=== PATIENT | male | born 1970 | race Caucasian/White ===

== ENCOUNTER 2016-08-20 11:04 | Emergency (ER) | payer OTHER ==
[~2016-08-20 11:04] MED LIST: ACULAR10 ML; BACTRIM DS TABL1 TAB PO; KEFLEX PO; LORTAB 5/500 TA1 TA1 PO; VICODIN 5/500 T1 TAB PO
[2016-08-23 01:24] LABS: CHLAMYDIA TRACH Not Detected (Not Detected); N GONOR Detected (Not Detected)
== END 2016-08-20 14:10 | disposition home or self-care (01) ==
LOC: CFTX 11:04 → CED 11:04 → CFTX 13:36 → CED 13:36 → CFTX 14:10
PROVIDERS: Physician Assistant Medical
DX: R36.9 Urethral discharge, unspecified (principal); F17.210 Nicotine dependence, cigarettes, uncomplicated; Z98.890 Other specified postprocedural states
CPT/HCPCS: 87491; 87591; 96372; 99283; J0696